=== PATIENT | female | born 1985 | race Caucasian/White ===

== ENCOUNTER 2019-07-25 14:07 | Observation (INO) | payer OTHER, SELFPAY ==
[2019-07-25] VITALS (7 sets, daily range): BP systolic 124–137; BP diastolic 72–89; PULSE 67–88; RESP 15–20; TEMP 36.8–37.4; O2SAT 96–99
--- NOTE | ~2019-07-25 | US_ITS ---
EXAMINATION: US pelvic complete DATE: 07/26/2019 14:41 INDICATION: Abdominal plane and abnormal bleeding post section 13 days ago TECHNIQUE: Multiple transabdominal and endovaginal sonographic images of the pelvis were obtained. COMPARISON: 07/25/2019 FINDINGS: The uterus measures 11.8 x 8.4 x 7.1 cm. The endometrial complex measures 2.9 cm in thickne ss. There is persistent anechoic and hypoechoic material in the endometrial canal with possible sligh t decrease in the hypoechoic component. Neither component demonstrates internal vascularity. There is a 7.0 x 2.4 cm fluid collection in the anterior abdominal wall adjacent to the area of the scar. There is no free fluid in the pelvis. IMPRESSION: 1. Thickened endometrial complex containing heterogeneous material, differential is as previously zaida cribed including hematoma and/or retained products of conception. 2. Persistent fluid collection in the anterior abdominal wall adjacent to the scar, consistent with h ematoma and/or abscess. Reviewed, dictated and finalized at location A. IMPRESSION: 1. Thickened endometrial complex containing heterogeneous material, differentia l is as previously described including hematoma and/or retained products of con ception. 2. Persistent fluid collection in the anterior abdominal wall adjacent to the s car, consistent with hematoma and/or abscess.
--- NOTE | ~2019-07-25 | US_ITS ---
EXAMINATION: US pelvic complete DATE: 07/25/2019 16:02 INDICATION: Vaginal bleeding post section TECHNIQUE: Multiple transabdominal sonographic images of the pelvis were obtained. COMPARISON: None. FINDINGS: The uterus measures 13.4 x 7.2 x 8.3 cm. The endometrial complex measures 3.5 cm in thickness, fille d with both anechoic fluid and hypoechoic material concerning for, additional hemorrhage and retained products of conception. No internal vascular flow on color Doppler within the hypoechoic material wi thin the endometrial complex. The ovaries are not visualized. There is no free fluid in the pelvis. 7 .4 x 2.1 x 7.3 cm anechoic fluid collection within the anterior abdominal wall at the site of the [place] section scar most likely residual postoperative hematoma with differential including abscess in the appropriate clinical setting. IMPRESSION: 1. Thickened endometrial complex measuring 3.5 cm in thickness and containing anechoic fluid and hypo echoic material which could represent either clot and/or retained products of conception. 2. 7.4 x 2.1 x 7.3 cm likely hematoma along the anterior abdominal wall section wound. Reviewed, dictated and finalized at location A. IMPRESSION: 1. Thickened endometrial complex measuring 3.5 cm in thickness and containing a nechoic fluid and hypoechoic material which could represent either clot and/or retained products of conception. 2. 7.4 x 2.1 x 7.3 cm likely hematoma along the anterior abdominal wall cesarea n section wound.
--- NOTE | ~2019-07-25 | US_ITS ---
EXAMINATION: US abscess cyst aspiration DATE: 07/27/2019 13:04 INDICATION: Loculated fluid collection along a transverse pelvic surgical wound. TECHNIQUE: The procedure including the risks and benefits was discussed with the patient. Risks discu ssed included bleeding, allergic reaction and infection. The patient understood the risks and agreed to proceed. The skin slightly cephalad to a transverse Pfannenstiel surgical wound at the anterior p robby was prepped and draped in usual sterile fashion. Anesthetic was administered with 1% lidocaine subcutaneously. An 18 gauge trocar needle was advanced under continuous ultrasound observation into the fluid collection of interest. 7 mL of dark maroon-colored 3 cm fluid was aspirated and sent to the lab for Gram stain and cultures. The needle was removed and the entry site was cleaned and dress ed. Post procedure ultrasound demonstrated no new hemorrhage. FINDINGS: Ultrasound images demonstrate 9.4 x 9.1 x 2.2 cm nearly anechoic complex fluid collection s lightly cephalad to the section wound. Subsequent images demonstrate the needle within the f luid collection. IMPRESSION: 1. Successful Ultrasound-guided aspiration of a likely postoperative hematoma along a sectio n wound at the anterior pelvis. Reviewed, dictated and finalized at location A. IMPRESSION: 1. Successful Ultrasound-guided aspiration of a likely postoperative hematoma a long a section wound at the anterior pelvis.
[2019-07-25 14:39] LABS: Basophils Absolute Auto 0.1 K/mm3 (0.0-0.1); Basophils Percent Auto 0.7 % (0.2-1.2); Eosinophils Absolute Auto 0.7 K/mm3 (0-0.3); Eosinophils Percent Auto 8.8 % (0-4.4); Hematocrit 34.2 % (37.0-47.0); Hemoglobin 10.3 g/dL (12.0-15.0); Immature Granulocyte Absolute 0.03 K/mm3 (0.00-0.031); Immature Granulocyte Percent A 0.4 % (0-0.5); Lymphocytes Absolute Auto 3.04 K/mm3 (0.9-3.2); Mean Corpuscular HGB Conc 30.1 g/dl (32-36); Mean Corpuscular Hemoglobin 23.1 pg (26-34); Mean Corpuscular Volume 76.9 fl (80-100); Mean Platelet Volume 9.2 fl (7.4-10.4); Monocytes Absolute Auto 0.7 K/mm3 (0.1-0.6); Monocytes Percent Auto 8.6 % (2.6-8.5); Neutrophils Absolute Auto 3.9 K/mm3 (1.3-6.7); Neutrophils Percent Auto 45.5 % (45.5-73.1); Platelet Count Result 1346 k/mm3 (150-375); Red Blood Count 4.45 M/mm3 (4.2-5.4); Red Cell Distribution Width 17.2 % (11.5-14.5); White Blood Count 8.5 K/mm3 (4.5-10.0)
[2019-07-25 14:57] LABS: Alanine Aminotransferase 17 U/L (4-35); Albumin Level 4.1 g/dL (3.5-5.1); Alkaline Phosphatase 151 U/L (38-126); Aspartate Amino Transferase 35 U/L (14-36); Bilirubin,Total 0.5 mg/dL (0.2-1.3); Blood Urea Nitrogen 14 mg/dL (7-17); Calcium 9.3 mg/dL (8.4-10.2); Carbon Dioxide 28 mmol/L (22-30); Chloride 100 mmol/L (98-107); Estimated CRCL calculation 93 ml/min; Estimated Glomerular Filt Rate > 60; Glucose 92 mg/dL (65-105); Potassium 3.8 mmol/L (3.4-5.0); Sodium 135 mmol/L (137-145)
--- NOTE | 2019-07-25 15:25 | ED.FEMALEGU ---
HPI - Female Genitourinary General Chief complaint: INFANT NANNY Stated complaint: post bleeding Time Seen by Provider: 07/25/19 15:11 History of Present Illness HPI Narrative: Patient presents with abnormally heavy bleeding from her vagina. She had a on May 12. Her bleeding has stopped after that. She has some cramping with this. She is breast-feeding the baby. Her OB [facility]. She was using 2 pads an hour at home She also complains of hives itching and cool hands. MD elicited complaint: vaginal bleeding and pelvic pain Onset (ago): hour(s) Location of symptoms: vaginal Vaginal bleeding: heavy and bright red Relieving factors: none Related Data Allergies Allergy/AdvReac Type Severity Reaction Status Date / Time ibuprofen Allergy Mild hives Verified 10/27/18 12:09 ketorolac Allergy Mild hives Verified 10/27/18 12:09 azithromycin Allergy Unknown Anaphylactic Verified 10/27/18 12:09 Shock Review of Systems Review of Systems: Narrative: CONSTITUTIONAL: Denies fever, chills, or sweats. EYES: Denies visual changes, redness, or discharge. ENT: Denies rhinorrhea, congestion, sore throat, or otalgia. CARDIOVASCULAR: Denies chest pain, palpitations, or edema. RESPIRATORY: Denies cough or dyspnea. GASTROINTESTINAL: Denies abdominal pain, nausea, vomiting, or diarrhea. GENITOURINARY: Denies dysuria or hematuria.She is here for heavy vaginal bleeding. SKIN: Denies rash or itching. MUSCULOSKELETAL: Denies back pain, joint pain, or myalgia. NEUROLOGIC: Denies headache, numbness, or weakness. PSYCHIATRIC: Denies anxiety or depression. PMFSH Surgical History Surgical History H/O splenectomy History of appendectomy History of cholecystectomy Social History Social History (Updated 07/25/19 @ 15:29 by Marylou Felix MD) Smoking status: Never smoker Alcohol intake: never Substance use: never Exam Narrative: Exam Narrative: GENERAL: Well-appearing, well-nourished, and in no acute distress. HEAD: Normocephalic, atraumatic. EYES: PERRLA and EOMI. ENT: Nares clear, no rhinorrhea or epistaxis. Mucous membranes moist. NECK: Supple. CHEST: Clear to auscultation. No respiratory distress. HEART: Regular rate and rhythm. No murmur heard. Normal peripheral pulses. ABDOMEN: Soft, nontender, nondistended, normal active bowel sounds. EXTREMITIES: Normal range of motion. No edema. SKIN: Warm, dry, no rash. NEURO: No focal deficits. Alert and oriented x3. PSYCH: Normal mood and affect. Const: General: no acute distress and alert Orientation/consciousness: patient oriented x3 : Speculum Exam - Vagina: vaginal bleeding (Discussed risk of bright red vaginal bleeding, no clots, unable to see the ) Course Reevaluation(s) Reevaluation #1: Will back into told the patient about her admission, and she is more concerned about her hands feeling numb. I told her it might be either carpal tunnel or hyperventilation, and she asked if she was going to . I assured her not anytime soon. I explained that we would get a redraw her blood and that she was going to be admitted under Dr. Hardy and that he was going to evaluate her and decide whether or not she needed to have a D&C. I explained the D&C process. I also told her that she could ask for a breast pump when she gets to the floor to keep her milk going. Date: 07/25/19 Time: 16:55 Consultations Consultation #1: Call Dr. Enriquez COMPARATIVE SOCIOLOGY PROFESSOR, and he will call back in an hour after the ultrasound to see whether he needs to come in and do the procedure. Date: 07/25/19 Time: 15:31 Consultation #2: Called Dr. Enriquez back, and he will admit and evaluate on the floor. Date: 07/25/19 Time: 16:44 Vital Signs Vital signs: Vital Signs Temperature 98.4 F 07/25/19 14:10 Pulse Rate 87 07/25/19 14:10 Respiratory Rate 20 07/25/19 14:10 Blood Pressure 137/72 07/25/19 14:10 Pulse Oximetry 98 07/25/19 14:10
[2019-07-25 16:58] LABS: Hematocrit 31.7 % (37.0-47.0); Hemoglobin 9.6 g/dL (12.0-15.0)
[2019-07-25] MEDS: ONDANSETRON INJ 4 MG/2 ML VIAL IV PUSH (17:16)
[2019-07-25] MEDS: DEXTROSE 5%/0.45% SOD CHL 1,000 ML 100 ML IV CONT (17:46)
--- NOTE | 2019-07-25 17:54 | ADMGEN ---
1730-This patient, Minda Perez, was admitted to OB 2nd Floor Room 289-00. Patient oriented to hospital policies and general routines including ID bracelet, bed and alarms, visiting hours, pain management, procedures, bathroom and other care routines, personal items, smoking policy, room service/diet, and visiting hours. Valuables list has been completed. Information on how to activate the Rapid Response Team has been discussed. Patient is encouraged to report perceived risks to care and to ask questions if they do not understand what they are told or what they should do.
[2019-07-25] MEDS: ONDANSETRON INJ 4 MG/2 ML VIAL 8 MG IV PUSH (22:50)
[2019-07-26 03:50] VITALS: BP 121/73; PULSE 68; RESP 15; TEMP 37; O2SAT 100
[2019-07-26] MEDS: DEXTROSE 5%/0.45% SOD CHL 1,000 ML 100 ML IV CONT ×2 (04:00→14:03)
[2019-07-26 08:20] VITALS: BP 148/87; PULSE 59; RESP 18; TEMP 37.4; O2SAT 99
--- NOTE | 2019-07-26 08:38 | PM.IMHP ---
H&P: HPI History of Present Illness Chief complaint: vag bleed after delivery Narrative: Minda Perez is a 34 year old female 4 para 4 who is 12 days from a delivery. She had an episode of heavy vaginal bleeding. The began yesterday and persisted into the evening yesterday. Has slowed significantly. She denies any nausea, vomiting, fever, chills. She denies any chest pain or shortness of breath. She has a history of splenectomy. She has spherocytosis. She has history of 4 deliveries.. Thrombocytopenia likely secondary to her splenectomy. Review of Systems Constitutional: Constitutional: Reports no additional constitutional complaints, Denies fatigue, Denies headache(s), Denies lethargy and Denies weakness Eyes: Eyes: Reports no additional eye complaints, Denies blurry vision and Denies photophobia ENT: Reports as per HPI, Denies headache(s) and Denies neck pain Cardiovascular: Cardiovascular: Denies chest pain, Denies diaphoresis, Denies leg edema, Denies palpitations and Denies dyspnea Respiratory: Respiratory: Denies hemoptysis, Denies dyspnea and Denies wheezing Gastrointestinal: Gastrointestinal: Denies abdominal pain, Denies melena, Denies bloating, Denies hematochezia, Denies nausea and Denies vomiting Genitourinary: Genitourinary: Reports no additional female genitourinary complaints Musculoskeletal: Musculoskeletal: Denies joint swelling, Denies neck pain, Denies numbness and Denies stiffness Neurologic: Denies Abnormal speech present, Denies confusion, Denies headache(s), Denies numbness and Denies weakness Psychiatric: Psychiatric: Denies anxiety, Denies confusion, Denies depression, Denies homicidal ideation and Denies suicidal ideation Endocrine: Endocrine: Denies fatigue and Denies palpitations Allergic/Immunologic: Allergic/Immunologic: Denies wheezing PMFSH Past Medical History Medical History (Updated 07/26/19 @ 08:42 by Manjit Enriquez MD) Spherocytosis Surgical History Surgical History H/O splenectomy History of appendectomy History of cholecystectomy Social History Social History (Updated 07/25/19 @ 15:29 by Marylou Felix MD) Smoking status: Never smoker Alcohol intake: never Substance use: never Meds Home Medications and Allergies Allergies Allergy/AdvReac Type Severity Reaction Status Date / Time ibuprofen Allergy Mild hives Verified 10/27/18 12:09 ketorolac Allergy Mild hives Verified 10/27/18 12:09 azithromycin Allergy Unknown Anaphylactic Verified 10/27/18 12:09 Shock Vital Signs Vital Signs - 24 hr 07/25/19 14:10 07/25/19 16:17 07/25/19 17:05 Temperature 98.4 F 98.2 F Pulse Rate 87 88 70 Respiratory Rate 20 20 20 Blood Pressure 137/72 124/74 128/89 Pulse Oximetry 98 99 99 07/25/19 17:23 07/25/19 17:35 07/25/19 19:30 Temperature 98.2 F 99.0 F 98.5 F Pulse Rate 70 67 73 Respiratory Rate 20 18 16 Blood Pressure 124/80 135/87 133/78 Pulse Oximetry 99 98 96 07/25/19 23:00 07/26/19 03:50 Temperature 99.4 F 98.6 F Pulse Rate 78 68 Respiratory Rate 15 15 Blood Pressure 132/82 121/73 Pulse Oximetry 97 100 Exam Const: General: healthy appearing, comfortable and no acute distress; No confusion Orientation/consciousness: No confusion Eyes: Direct Ophthalmoscopy: No photophobia Resp: Auscultation: clear to auscultation bilaterally, no rales, no rhonchi and no wheezes Cardio: Rate: regular rate Heart sounds: no click, no murmurs and no rubs GI: Inspection: non-distended GI Palp: No abdominal tenderness Auscultation: normal bowel sounds Neuro: General: No confusion Speech: No Abnormal speech present Extrem: General: normal to inspection, no pedal edema and no calf tenderness H&P: Results Labs Labs: Short CBC 07/25/19 07/25/19 Range/Units 14:29 16:53 WBC 8.5 (4.5-10.0) K/mm3 Hgb 10.3 L 9.6 L (12.0-15.0) g/dL Hct 34.
[2019-07-26] MEDS: ONDANSETRON INJ 4 MG/2 ML VIAL 8 MG IV PUSH ×2 (08:48→17:22)
[2019-07-26] MEDS: SERTRALINE HCL 50 MG TABLET 150 MG PO (10:15)
[2019-07-26] MEDS: CLONAZEPAM 0.5 MG TAB 1 MG PO ×2 (10:16→20:32)
[2019-07-26 10:42] LABS: Basophils Absolute Auto 0.1 K/mm3 (0.0-0.1); Basophils Percent Auto 0.9 % (0.2-1.2); Eosinophils Absolute Auto 0.7 K/mm3 (0-0.3); Eosinophils Percent Auto 8.6 % (0-4.4); Hematocrit 35.1 % (37.0-47.0); Hemoglobin 10.6 g/dL (12.0-15.0); Immature Granulocyte Absolute 0.06 K/mm3 (0.00-0.031); Immature Granulocyte Percent A 0.8 % (0-0.5); Lymphocytes Absolute Auto 3.05 K/mm3 (0.9-3.2); Lymphocytes Percent Auto 40.3 % (18.3-44.2); Mean Corpuscular HGB Conc 30.2 g/dl (32-36); Mean Corpuscular Hemoglobin 23.3 pg (26-34); Mean Corpuscular Volume 77.1 fl (80-100); Mean Platelet Volume 8.9 fl (7.4-10.4); Monocytes Absolute Auto 0.6 K/mm3 (0.1-0.6); Monocytes Percent Auto 7.9 % (2.6-8.5); Neutrophils Absolute Auto 3.1 K/mm3 (1.3-6.7); Neutrophils Percent Auto 41.5 % (45.5-73.1); Platelet Count Result 1354 k/mm3 (150-375); Red Blood Count 4.55 M/mm3 (4.2-5.4); White Blood Count 7.6 K/mm3 (4.5-10.0)
[2019-07-26 11:25] VITALS: BP 119/64; PULSE 88; RESP 18; TEMP 37.4; O2SAT 97
[2019-07-26 11:48] LABS: Anisocytosis 1+ (NORMAL); Platelet Estimate Increased (Adequate); Poikilocytosis 1+ (NORMAL)
[2019-07-26 17:00] VITALS: BP 132/72; PULSE 71; RESP 14; TEMP 36.6; O2SAT 100
--- NOTE | 2019-07-26 17:33 | PC.NURSE ---
Pt is very anxious. Has stated multiple times that she believes she has an infection. I have reassured her that her vitals and labs all look good and do not indicate infection. She states that her itching and nausea are getting worse, i administered zofran and benadryl and explained how her nerves could play a role into those. However, she is not complaining of pain at this time. Will continue to monitor patient.
[2019-07-26 20:15] VITALS: BP 123/80; PULSE 75; RESP 15; TEMP 37.3; O2SAT 96
[2019-07-27] MEDS: CLONAZEPAM 0.5 MG TAB 1 MG PO ×2 (07:38→17:51)
[2019-07-27] MEDS: SERTRALINE HCL 50 MG TABLET 150 MG PO (07:38)
[2019-07-27 08:00] VITALS: BP 129/79; PULSE 72; RESP 18; TEMP 36.9
--- NOTE | 2019-07-27 08:13 | PM.OBPNVD ---
OB - PN: Subj Subjective Date/time seen: 07/27/19 08:13 denies n/v/f/c, no vaginal bleeding, OB - PN: Obj Data Labs CBC & Chem 7: 07/26/19 10:25 07/25/19 14:29 Labs: Laboratory Results - last 24 hr 07/26/19 10:25 WBC 7.6 RBC 4.55 Hgb 10.6 L Hct 35.1 L MCV 77.1 L MCH 23.3 L MCHC 30.2 L RDW 17.0 H Plt Count 1354 H MPV 8.9 Immature Gran % (Auto) 0.8 H Neut % (Auto) 41.5 L Lymph % (Auto) 40.3 [place] % (Auto) 7.9 Eos % (Auto) 8.6 H Baso % (Auto) 0.9 Lymph # (Auto) 3.05 [place] # (Auto) 0.6 Eos # (Auto) 0.7 H Baso # (Auto) 0.1 Abs Immat Gran (auto) 0.06 H Absolute Neuts (auto) 3.1 Absolute Nucleated RBC 0.0 Nucleated RBC % 0.0 Platelet Estimate Increased Poikilocytosis 1+ Anisocytosis 1+ Imaging Radiologist's impression: Impressions Pelvis Ultrasound 07/26/19 15:33 IMPRESSION: 1. Thickened endometrial complex containing heterogeneous material, differential is as previously described including hematoma and/or retained products of conception. 2. Persistent fluid collection in the anterior abdominal wall adjacent to the scar, consistent with hematoma and/or abscess. OB - PN A/P Assessment and Plan (1) Vagina bleeding: Code(s): N93.9 - Abnormal uterine and vaginal bleeding, unspecified Status: Acute (2) Pelvic abscess: Status: Acute Assessment and Plan: To have radiology place drain in fluid collection, cont. obs today, endometrial fluid collection to observe, low likelyhood of retained products. Time Spent With Patient Time: Total time spent is greater than 50% in coordination of care (as documented) at patient's floor/unit and/or counseling patient: Review of Systems Constitutional: Constitutional: Reports no additional constitutional complaints, Denies fatigue, Denies headache(s), Denies lethargy and Denies weakness Eyes: Eyes: Reports no additional eye complaints, Denies blurry vision and Denies photophobia ENT: Reports as per HPI, Denies headache(s) and Denies neck pain Cardiovascular: Cardiovascular: Denies chest pain, Denies diaphoresis, Denies leg edema, Denies palpitations and Denies dyspnea Respiratory: Respiratory: Denies hemoptysis, Denies dyspnea and Denies wheezing Gastrointestinal: Gastrointestinal: Denies abdominal pain, Denies melena, Denies bloating, Denies hematochezia, Denies nausea and Denies vomiting Genitourinary: Genitourinary: Reports no additional female genitourinary complaints Musculoskeletal: Musculoskeletal: Denies joint swelling, Denies neck pain, Denies numbness and Denies stiffness Neurologic: Denies Abnormal speech present, Denies confusion, Denies headache(s), Denies numbness and Denies weakness Psychiatric: Psychiatric: Denies anxiety, Denies confusion, Denies depression, Denies homicidal ideation and Denies suicidal ideation Endocrine: Endocrine: Denies fatigue and Denies palpitations Allergic/Immunologic: Allergic/Immunologic: Denies wheezing Exam Const: General: comfortable, no acute distress and alert Resp: Effort & Inspection: normal respiratory effort Auscultation: no crackles, no rales and no rhonchi Cardio: Rate: regular rate Heart sounds: no click, no murmurs and no rubs GI: Inspection: non-distended GI Palp: No Tenderness to palpation present (GI) Auscultation: normal bowel sounds Other: Incision - CDI Extrem: General: normal to inspection, no pedal edema and no calf tenderness
--- NOTE | 2019-07-27 10:14 | PCCCNOTE ---
Received referral to see pt. for eval for post psychosis . Spoke with pt.'s nurse, Deanne. If concern for pyschosis, eval needs to be completed by physician or consult psychiatrist. Per Deanne, pt. is doing better today. Met with pt. this morning. Patient appeared appropriate in affect and interaction with protective services social worker. Pt. reports that she had a baby girl by c section on July 13, 2019. This was her first baby. She reports that all 4 children are at home with their father, her significant other. Pt. reports that she has had anxiety for years and has taken zoloft and klonopin. Her meds have been prescribed by her director microbiology and she has an appointment with a psychiatrist in [place] within the next 2 weeks. She is unsure of the date of the appointment but will contact them when she gets home. She does not have a therapist. Offered to assist with resources for therapist in local area, but pt. reports that she will get an appointment with a therapist at the psychiatrists office after her first visit. Pt. admits to DCFS involvement after her baby was born earlier this month. She states that she was prescribed oxycodone after she slipped and fell down 13 icy steps in March. She had a urine drug screen done in the hospital in [place] which was positive for opiates and DCFS was called. She reports that they made one home visit after discharge earlier this month to check look at her house, but no contact since then. She reports that all 4 children live with her. Questioned patient about suicidal and homicidal ideation and she denied both. Pt. instructed to let nurse know if questions or other needs come up.
--- NOTE | 2019-07-27 12:47 | PC.NURSE ---
Pt. to radiology per wheelchair for needle aspiration procedure. Consent signed for procedure.
--- NOTE | 2019-07-27 13:12 | PC.NURSE ---
Pt. returned from procedure. Doing well.
[2019-07-27] MEDS: ONDANSETRON INJ 4 MG/2 ML VIAL 8 MG IV PUSH ×2 (13:25→19:35)
[2019-07-27 16:00] VITALS: BP 106/63; PULSE 69; RESP 18; TEMP 37.2
[2019-07-27 19:45] VITALS: BP 116/77; PULSE 73; RESP 18; TEMP 36.8; O2SAT 96
[2019-07-27 23:45] VITALS: BP 104/64; PULSE 81; RESP 16; TEMP 36.9; O2SAT 100
[2019-07-28] MEDS: ONDANSETRON INJ 4 MG/2 ML VIAL 8 MG IV PUSH ×2 (01:37→07:23)
[2019-07-28 05:06] VITALS: BP 104/64; PULSE 77; RESP 16; TEMP 36.8; O2SAT 100
[2019-07-28] MEDS: SERTRALINE HCL 50 MG TABLET 150 MG PO (07:22)
[2019-07-28] MEDS: CLONAZEPAM 0.5 MG TAB 1 MG PO (07:23)
--- NOTE | 2019-07-28 07:35 | PM.OBPNVD ---
OB - PN: Subj Subjective Date/time seen: 07/28/19 07:35 patient had an episode of emesis last night, patient extremity anxious for several days. Patient comments: no complaints, pain well controlled and tolerating diet OB - PN: Obj Data Labs CBC & Chem 7: 07/26/19 10:25 07/25/19 14:29 Imaging Radiologist's impression: Impressions Cyst Aspiration Ultrasound 07/27/19 13:40 IMPRESSION: 1. Successful Ultrasound-guided aspiration of a likely postoperative hematoma along a section wound at the anterior pelvis. OB - PN A/P Assessment and Plan (1) Postoperative vaginal bleeding: Status: Acute (2) Pelvic hematoma: Status: Acute Assessment and Plan: Suspected pelvic abscess aspirated yesterday and found to be blood only. Patient has been observed now for almost 4 complete days and has no signs or symptoms of infection. She has severe anxiety. We are going to discharge today. She has a psychiatry appointment coming up. She is going to follow up in 1 week. Her vaginal bleeding is stable/resolving. Time Spent With Patient Time: Total time spent is greater than 50% in coordination of care (as documented) at patient's floor/unit and/or counseling patient: Exam Const: General: comfortable, no acute distress and alert Resp: Effort & Inspection: normal respiratory effort Auscultation: no crackles, no rales and no rhonchi Cardio: Rate: regular rate Heart sounds: no click, no murmurs and no rubs GI: Inspection: non-distended GI Palp: No Tenderness to palpation present (GI) Auscultation: normal bowel sounds Other: Incision - CDI Extrem: General: normal to inspection, no pedal edema and no calf tenderness Psych: Appearance: grossly normal and well kempt Affect: Anxious affect present Attitude: cooperative Judgement: Good judgement present (Psych)
--- NOTE | 2019-07-28 07:39 | P.DS_ITS ---
DS: Diagnosis Admitting Diagnosis Admitting Diagnosis: Essential (hemorrhagic) thrombocythemia Discharge Diagnosis (1) Pelvic hematoma: Status: Acute (2) Vagina bleeding: Code(s): N93.9 - Abnormal uterine and vaginal bleeding, unspecified Status: Acute (3) Anxiety: Code(s): F41.9 - Anxiety disorder, unspecified Status: Acute DS: Summary Status at Discharge Functional status at discharge: independent ambulation Time Spent with Patient Time attestation: Total time spent providing and/or coordinating discharge services: Time spent: Less than 30 minutes DS: Data Data Completed and Pending Labs on day of discharge: Preliminary micro results at discharge 07/27/19 12:49 Anaerobic Culture - Preliminary Incision Discharge Plan Discharge Attending physician on discharge: Manjit Enriquez Discharging Clinician: Manjit Enriquez Patient Disposition: Home Health Service Activity: pelvic rest Diet: regular Patient Instructions: Antibiotic Form, Dysfunctional Uterine Bleeding (ED) Stand Alone Forms: General Discharge Information Follow-up/Referrals: Manjit Enriquez MD [Physician] - Discharge Medications: New clonazepam 0.5 mg Tablet 1 mg PO Q12H PRN (Reason: Anxiety) Qty: 25 RF: 0 hydrocodone-acetaminophen 5-325 mg tablet 1 - 2 tablet PO Q4H PRN (Reason: pain) Qty: 25 RF: 0 Date of admission: 07/25/19 16:47 Primary Care Provider: PHYSICIAN,WEALTH MANAGEMENT CONSULTANT Admitting Provider: Manjit Enriquez Attending physician on admission: Manjit Enriquez Condition: Serious
[2019-07-28 08:00] VITALS: BP 113/67; PULSE 75; RESP 18; TEMP 37.1
[2019-07-28 09:24] LABS: Basophils Percent Auto 0.3 % (0.2-1.2); Eosinophils Absolute Auto 0.3 K/mm3 (0-0.3); Eosinophils Percent Auto 2.1 % (0-4.4); Hematocrit 34.2 % (37.0-47.0); Hemoglobin 10.3 g/dL (12.0-15.0); Immature Granulocyte Absolute 0.04 K/mm3 (0.00-0.031); Immature Granulocyte Percent A 0.3 % (0-0.5); Lymphocytes Absolute Auto 1.98 K/mm3 (0.9-3.2); Lymphocytes Percent Auto 15.6 % (18.3-44.2); Mean Corpuscular HGB Conc 30.1 g/dl (32-36); Mean Corpuscular Hemoglobin 23.3 pg (26-34); Mean Corpuscular Volume 77.4 fl (80-100); Mean Platelet Volume 9.2 fl (7.4-10.4); Monocytes Absolute Auto 0.5 K/mm3 (0.1-0.6); Monocytes Percent Auto 4.2 % (2.6-8.5); Neutrophils Absolute Auto 9.8 K/mm3 (1.3-6.7); Neutrophils Percent Auto 77.5 % (45.5-73.1); Platelet Count Result 1198 k/mm3 (150-375); Red Blood Count 4.42 M/mm3 (4.2-5.4); Red Cell Distribution Width 17.1 % (11.5-14.5); White Blood Count 12.7 K/mm3 (4.5-10.0)
== END 2019-07-28 11:19 | disposition home or self-care (01) ==
LOC: ANHED 16:53 → ANHOB2 17:09
PROVIDERS: Emergency Medicine; Admitting Provider Obstetrics & Gynecology; Emergency Provider Emergency Medicine; Visit Provider Obstetrics & Gynecology
DX: O90.2 Hematoma of obstetric wound (principal); O72.1 Other immediate postpartum hemorrhage; O99.13 Other diseases of the blood and blood-forming organs and certain disorders involving the immune mechanism complicating the puerperium; D58.0 Hereditary spherocytosis; O99.345 Other mental disorders complicating the puerperium; F41.9 Anxiety disorder, unspecified; O99.89 Other specified diseases and conditions complicating pregnancy, childbirth and the puerperium; D47.3 Essential (hemorrhagic) thrombocythemia; O90.81 Anemia of the puerperium; D64.9 Anemia, unspecified; Z90.81 Acquired absence of spleen
CPT/HCPCS: 36415; 76856; 76942; 80053; 85014; 85018; 85025; 86850; 86900; 86901; 87070; 87075; 87205; 96361; 96374; 96375; 96376; 99285; A9270; G0378; J1200; J2405; J3010

== ENCOUNTER 2020-02-01 14:24 | Emergency (ER) | payer OTHER, SELFPAY ==
[2020-02-01 14:35] VITALS: BP 134/77; PULSE 69; RESP 20; TEMP 36.9; O2SAT 100
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
--- NOTE | 2020-02-01 16:13 | PC.NURSE ---
Pt brought to room with manager rn case. Pt requesting multiple refills on prescription medications including controlled substances. EDP at bedside with charge machine operator. EDP does not feel comfortable prescribing pt home medications and referring pt to her primary care physician.
--- NOTE | 2020-02-01 16:17 | PC.NURSE ---
requested to come to room to speak with pt. Pt requesting her adderal, klonipine, & zoloft medications to be refilled. Dr Carlisle told pt he will not refill her controlled substance prescriptions, however he will give her a script for zoloft. pt is very upset and states you're lying because I've gotten my meds refilled here before Explained to her that she will get her zoloft medication prescription but none of her controlled substance prescriptions. Pt remains upset and continues to tell me that I am lying about filling her adderral and klonipine medications. Told pt again that she must speak to her prescribing doctor about those medications. She still remains upset.
--- NOTE | 2020-02-01 16:45 | PC.NURSE ---
Pt ambulated with employment evaluator/case manager out of room. EDP in hallway, pt states she is leaving w/o prescription or d/c paperwork. Pt ambulated w/o difficulty to parking lot.
[2020-02-01 17:02] VITALS: BP 128/80; PULSE 80; RESP 118; TEMP 36.6; O2SAT 99
== END 2020-02-01 17:03 | disposition home or self-care (01) ==
PROVIDERS: Emergency Provider Emergency Medicine
DX: F41.9 Anxiety disorder, unspecified (principal)
CPT/HCPCS: 99281

== ENCOUNTER 2020-05-21 15:52 | Emergency (ER) | payer OTHER, SELFPAY ==
[2020-05-21 16:02] VITALS: BP 121/69; PULSE 84; RESP 16; TEMP 37.3; O2SAT 98
--- NOTE | 2020-05-21 16:14 | ED.DENTAL ---
HPI - Dental/Oral General Chief complaint: Dental/Oral Stated complaint: TOOTH PAIN Time Seen by Provider: 05/21/20 16:00 Source: patient History of Present Illness HPI Narrative: 35 yo female presents to the [facility] care with right upper dental pain for a few days. Patient has a broken tooth. Was supposed to have it removed but never followed up. Patient states that she is , has not seen OB for this . Denies any vaginal discharge or abdominal pain. Last menstrual period December 29 approximately. States she does have an appointment with [facility] at the end of the month. Complaint: tooth pain Related Data Home Medications Medication Instructions Recorded Confirmed [id number] 28 pkg PO DAILY 05/21/20 05/21/20 [Daily ] sertraline [Zoloft] 50 mg PO DAILY 05/21/20 05/21/20 Allergies Allergy/AdvReac Type Severity Reaction Status Date / Time ibuprofen Allergy Mild hives Verified 05/21/20 16:15 Review of Systems Review of Systems: Narrative: CONSTITUTIONAL: Denies fever, chills, or sweats. EYES: Denies visual changes, redness, or discharge. ENT: Denies rhinorrhea, congestion, sore throat, or otalgia. Left upper dental pain with gum swelling CARDIOVASCULAR: Denies chest pain, palpitations, or edema. RESPIRATORY: Denies cough or dyspnea. GASTROINTESTINAL: Denies abdominal pain, nausea, vomiting, or diarrhea. GENITOURINARY: Denies dysuria or hematuria. SKIN: Denies rash or itching. MUSCULOSKELETAL: Denies back pain, joint pain, or myalgia. NEUROLOGIC: Denies headache, numbness, or weakness. PSYCHIATRIC: Denies anxiety or depression. All other systems reviewed are negative, except as documented in HPI. [facility] Past Medical History Medical History Spherocytosis Surgical History Surgical History H/O splenectomy History of appendectomy History of cholecystectomy Social History Social History Smoking status: Never smoker Alcohol intake: never Substance use: never Gender identity (if verbalized by the patient): Female Comments at this time. 4 at the time of my signature, I reviewed and agree with the nursing past medical, surgical, social, and family history. There is no relevant family history pertinent to the patient complaint. Exam Narrative: Exam Narrative: GENERAL: This is a well-nourished, well-developed patient, in no apparent distress. HEAD: normocephalic, atraumatic. EYES: PERRL. Sclera clear/white. Vision is grossly intact. EARS: External ears normal, auditory canals clear and without drainage, TMs normal without perforation. Hearing grossly intact. NOSE: External nose normal with no obvious nasal discharge, nares without redness, no rhinorrhea. THROAT: Mucous membranes moist, posterior pharynx clear. NECK: Neck supple, non-tender without lymphadenopathy, masses or thyromegaly. CARDIOVASCULAR: Regular rate and rhythm without murmurs, gallops, or rubs. RESPIRATORY: Clear to auscultation. Breath sounds equal bilaterally. No wheezes, rales, or rhonchi. GASTROINTESTINAL: Abdomen soft, non-tender, nondistended. Bowel sounds are active. No hepato-splenomegaly, or palpable masses. No guarding. SKIN: warm, intact with no suspicious lesions or rash, good texture and turgor. NEURO: awake, alert, and oriented to person, place and time. There were no obvious focal neurologic abnormalities. EXTREMITIES: No clubbing, cyanosis, or edema. No joint tenderness, effusion, or edema noted. No calf tenderness. Negative Homans sign bilaterally. BACK: Nontender without deformity or crepitance. No flank tenderness. heart tones at 142. HENMT: Teeth image: 1. Broken tooth with swelling of the gums around 13 14 15. Course Vital Signs Vital signs: Vital Signs Temperature 99.2 F
== END 2020-05-21 16:20 | disposition home or self-care (01) ==
PROVIDERS: Emergency Provider Nurse Practitioner
DX: O99.619 Diseases of the digestive system complicating pregnancy, unspecified trimester (principal); K02.9 Dental caries, unspecified; Z3A.00 Weeks of gestation of pregnancy not specified
CPT/HCPCS: 99213; G0463

== ENCOUNTER 2020-09-20 19:14 | Observation (INO) | payer OTHER, SELFPAY ==
[2020-09-20] VITALS (14 sets, daily range): BP systolic 92–113; BP diastolic 52–65; PULSE 101–124; TEMP 37.1; BMI 25.8
[2020-09-20] MEDS: LACTATED RINGERS 1,000 ML 125 ML IV CONT ×2 (19:50→21:53)
[2020-09-20] MEDS: ONDANSETRON INJ 4 MG/2 ML VIAL IV PUSH (19:50)
--- NOTE | 2020-09-20 20:02 | OBADM ---
This patient, Minda Perez, admitted to the OB room [facility] for observation. Patient/family oriented to hospital policies and general routines including ID bracelet, bed and alarms, visiting hours, pain management, procedures, bathroom and other care routines, personal items, smoking policy, room service/diet, and visiting hours. Patient/Family are encouraged to report perceived risks to care and to ask questions if they do not understand what they are told or what they should do.
[2020-09-20 20:03] LABS: Hematocrit 34.2 % (37.0-47.0); Hemoglobin 11.8 g/dL (12.0-15.0); Mean Corpuscular HGB Conc 34.5 g/dl (32-36); Mean Corpuscular Hemoglobin 30.6 pg (26-34); Mean Corpuscular Volume 88.8 fl (80-100); Mean Platelet Volume 10.8 fl (7.4-10.4); Platelet Count Result 438 k/mm3 (150-375); Red Blood Count 3.85 M/mm3 (4.2-5.4); White Blood Count 17.9 K/mm3 (4.5-10.0)
[2020-09-20 20:08] LABS: Add Urine Microscopic? YES; Appearance Urine Cloudy (Clear); Bacteria Urine Trace /hpf; Bilirubin Urine Negative (Negative); Blood Urine Negative (Negative); Budding Yeast Urine Present /hpf; Color Urine Amber (Yellow); Glucose Urine UA Negative (Negative); Ketones Urine Negative (Negative); Leukocyte Esterase Ur 1+ LEU/UL (Negative); Mucus Urine Few /lpf; Nitrate Urine Negative (Negative); Protein Urine 2+ mg/dL (Negative); Specific Grav Ur 1.028 (1.001-1.035); Squamous Epithelial Cell Urine Many /hpf (Few); WBC Urine 0-3 /hpf
[2020-09-20 20:14] LABS: Alanine Aminotransferase 16 U/L (4-35); Albumin Level 3.6 g/dL (3.5-5.1); Alkaline Phosphatase 167 U/L (38-126); Anion Gap 8 mmol/L (8-16); Aspartate Amino Transferase 36 U/L (14-36); Bilirubin,Total 1.6 mg/dL (0.2-1.3); Blood Urea Nitrogen 7 mg/dL (7-17); Calcium 8.7 mg/dL (8.4-10.2); Carbon Dioxide 22 mmol/L (22-30); Chloride 105 mmol/L (98-107); Estimated CRCL calculation 146 ml/min; Estimated Glomerular Filt Rate > 60; Glucose 85 mg/dL (65-105); Potassium 3.3 mmol/L (3.4-5.0); Sodium 135 mmol/L (137-145); Uric Acid 2.9 mg/dL (2.5-7.5)
[2020-09-20 20:33] LABS: Band Neutrophils Percent 11 % (0-6); Eosinophils Absolute Manual 0.17 K/mm3 (0.02-0.5); Eosinophils Percent Manual 1 % (0-4); Lymphocytes Absolute Manual 0.71 K/mm3 (1.1-4.5); Monocytes Absolute Manual 0.53 K/mm3 (0.1-0.90); Monocytes Percent Manual 3 % (3-9); Neutrophils Absolute Manual 16.46 K/mm3 (1.7-7.2); Neutrophils Percent Manual 81 % (46-73); Total Cells Counted 100
[2020-09-20 20:34] LABS: Anisocytosis 2+ (NORMAL); Platelet Estimate Increased (Adequate)
[2020-09-20] MEDS: LACTATED RINGERS 1,000 ML 999 ML IV CONT (20:35)
[2020-09-20] MEDS: NIFEdipine 10 MG CAPSULE PO (21:52)
--- NOTE | 2020-09-22 07:16 | PM.OBTRLD ---
OB - Triage/Final Diagnosis Visit Information Comments/Additional reasons for admission: I have assessed the risk for this patient, Minda Perez, and determined that she would benefit from observation care. Evaluation Laboratory results: Laboratory Tests 09/20/20 09/20/20 09/20/20 19:47 19:47 19:47 WBC 17.9 H RBC 3.85 L Hgb 11.8 L Hct 34.2 L MCV 88.8 MCH 30.6 MCHC 34.5 RDW 15.0 H Plt Count 438 H D MPV 10.8 H Immature Gran % (Auto) Not Reportable Neut % (Auto) Not Reportable Lymph % (Auto) Not Reportable [place] % (Auto) Not Reportable Eos % (Auto) Not Reportable Baso % (Auto) Not Reportable Lymph # (Auto) Not Reportable [place] # (Auto) Not Reportable Eos # (Auto) Not Reportable Baso # (Auto) Not Reportable Abs Immat Gran (auto) Not Reportable Absolute Neuts (auto) Not Reportable Absolute Nucleated RBC Not Reportable Total Counted 100 Neutrophils % (Manual) 81 H Band Neutrophils % 11 H Lymphocytes % (Manual) 4.0 L Monocytes % (Manual) 3 Eosinophils % (Manual) 1 Nucleated RBC % Not Reportable Abs Neuts (Manual) 16.46 H Abs Lymphs (Manual) 0.71 L Abs Monocytes (Manual) 0.53 Absolute Eos (Manual) 0.17 Platelet Estimate Increased Anisocytosis 2+ Sodium 135 L Potassium 3.3 L Chloride 105 Carbon Dioxide 22 Anion Gap 8 BUN 7 D Creatinine 0.40 L Estim Creat Clear Calc 146 Estimated GFR > 60 Glucose 85 Uric Acid 2.9 Calcium 8.7 Total Bilirubin 1.6 H AST 36 ALT 16 Alkaline Phosphatase 167 H Total Protein 7.0 Albumin 3.6 Urine Color Mona Urine Appearance Cloudy H Urine pH 6.0 Ur Specific [place] 1.028 Urine Protein 2+ H Urine Glucose (UA) Negative Urine Ketones Negative Ur Blood (Man) Negative Urine Nitrate Negative Urine Bilirubin Negative Urine Urobilinogen 4.0 H Leukocyte Esterase Rfl 1+ H Urine RBC 3-5 H Urine WBC 0-3 Ur Squamous Epith Cells Many H Urine Bacteria Trace Urine Mucus Few H Urine Yeast (Budding) Present H Final Diagnosis (1) Nausea and vomiting during : Code(s): O21.9 - Vomiting of , unspecified Status: Acute (2) contractions: Code(s): O47.9 - False labor, unspecified Status: Acute
== END 2020-09-20 23:07 | disposition home or self-care (01) ==
PROVIDERS: Admitting Provider Obstetrics & Gynecology; Visit Provider Obstetrics & Gynecology
DX: O47.03 False labor before 37 completed weeks of gestation, third trimester (principal); O21.0 Mild hyperemesis gravidarum; Z3A.35 35 weeks gestation of pregnancy
CPT/HCPCS: 36415; 80053; 81001; 84550; 85025; 96361; 96374; 96375; A9270; G0378; G0379; J0131; J2405; J7120

== ENCOUNTER 2021-02-28 14:29 | Emergency (ER) | payer OTHER, SELFPAY ==
--- NOTE | 2021-02-28 14:52 | ED.DENTAL ---
HPI - Dental/Oral General Chief complaint: Dental/Oral Stated complaint: tooth pain Time Seen by Provider: 02/28/21 15:05 Source: patient and RN notes reviewed Mode of arrival: ambulatory Limitations: no limitations History of Present Illness HPI Narrative: 35-year-old female presents with concern for right upper and left lower dental pain. She reports she has cracked teeth in both of those areas, that have been cracked for a long time however they do started hurting over the last 3 days. Reports she has a dentist appointment next week. She denies trouble swallowing, fever, foul taste. Reports she has been using Tylenol for pain relief MD Complaint: tooth pain Related Data Home Medications Medication Instructions Recorded Confirmed gabapentin 300 mg PO TID 02/28/21 02/28/21 sertraline 100 mg PO DAILY 02/28/21 02/28/21 Allergies Allergy/AdvReac Type Severity Reaction Status Date / Time azithromycin Allergy Other Verified 02/28/21 14:54 Review of Systems Review of Systems: CONSTITUTIONAL: Denies malaise, chills, sweats, or fever. EYES: Denies visual changes ENT: Reports right upper and left lower dental pain, cracked teeth. Denies trouble swallowing, foul taste CARDIOVASCULAR: Denies chest pain, palpitations, or edema. RESPIRATORY: Denies cough or dyspnea. GASTROINTESTINAL: Denies abdominal pain, nausea, vomiting SKIN: Denies rash or itching. MUSCULOSKELETAL: Denies myalgia. NEUROLOGIC: Denies headache. All systems reviewed & are unremarkable except as noted in HPI and below PMFSH Comments At time of signature, agree with nursing past medical, surgical, social and family history. There is no relevant family history pertinent to the presenting complaint Exam Narrative: GENERAL: Well-appearing, well-nourished, and in no acute distress. HEAD: Normocephalic, atraumatic. EYES: PERRLA, sclera clear ENT: Nares clear. Mucous membranes moist. Oropharynx without edema, erythema or lesions. Teeth #2 and 19 broken without periapical abscess noted, no visible facial swelling noted, left lower jaw tenderness palpation NECK: Supple. No lymphadenopathy. CHEST: No respiratory distress. Speaks in full sentences. HEART: Regular rate and rhythm. SKIN: Warm, dry, no visible rash. NEURO: Alert and oriented x3. PSYCH: Normal mood and affect Course Course Emergency Course: Patient is aware of diagnosis, understands and agrees to treatment plan. Anticipatory guidance given. Patient agrees to follow-up as directed and is aware of reasons to seek care at the emergency department. Portions of this record may have been created with voice recognition software Vital Signs Vital signs: Reviewed. MDM - Dental/Oral MDM Narrative Medical decision making narrative: Patients pain and complaint coupled with physical findings are consistant with dentalgia. There are no focal signs of space occupying lesions that are compromising to the airway; no dysphagia, odynophagia, dysphonia, or dyspnea. No uvular deviation or soft palate edema. Patient is non-toxic appearing. The floor of the mouth is soft with no signs of Edwar's Angina; no induration below mandible, no neck pain. Patient is without trismus or drooling and able to swallow secretions. Patient is felt appropriate for discharge home with dental follow up. Critical Care Time Critical Care Time Critical Care Time: No Discharge Plan Discharge Clinical Impression: Toothache Patient Disposition: Home, Self-Care Condition: Stable Instructions: Antibiotic Form, Toothache (ED) Additional Instructions: Take antibiotic as directed Avoid temperature extremes May apply heat or ice to the face Gentle brushing and flossing Alternate Tylenol and ibuprofen as needed for pain Follow-up with the dentist as soon as possible--see the list provided Prescriptions: New amoxicillin-pot clavulanate [Augmentin] 875-125 mg tablet 1 tablet PO Q12H 10 Days Qty: 20 RF: 0 No Acti
[2021-02-28 14:54] VITALS: BP 108/63; PULSE 79; RESP 18; TEMP 36.6; O2SAT 97
[2021-02-28 15:25] VITALS: BP 108/63; PULSE 79; RESP 18; TEMP 36.6; O2SAT 97
== END 2021-02-28 15:25 | disposition home or self-care (01) ==
PROVIDERS: Emergency Provider Nurse Practitioner
DX: K08.89 Other specified disorders of teeth and supporting structures (principal); F41.9 Anxiety disorder, unspecified; F32.A Depression, unspecified
CPT/HCPCS: 99213; G0463

== ENCOUNTER 2021-05-17 18:24 | Emergency (ER) | payer OTHER, SELFPAY ==
[2021-05-17 18:32] VITALS: BP 126/62; PULSE 72; RESP 18; TEMP 36.6; O2SAT 98
--- NOTE | 2021-05-17 18:37 | ED.DENTAL ---
HPI - Dental/Oral General Chief complaint: Dental/Oral Stated complaint: Tooth ache Time Seen by Provider: 05/17/21 18:37 Source: patient, RN notes reviewed and old records reviewed Mode of arrival: ambulatory Limitations: no limitations History of Present Illness HPI Narrative: 36-year-old female presents to the [facility] with complaints of dental pain for a few days. Hx of poor dentition. No treatment prior to arrival MD Complaint: tooth pain Related Data Home Medications Medication Instructions Recorded Confirmed sertraline [Zoloft] 100 mg PO DAILY 05/21/20 05/17/21 Allergies Allergy/AdvReac Type Severity Reaction Status Date / Time ibuprofen Allergy Mild hives Verified 05/21/20 16:15 Review of Systems Review of Systems: All systems reviewed & are unremarkable except as noted in HPI and below Constitutional: Constitutional: Reports no additional constitutional complaints, Denies chills and Denies fever(s) Eyes: Eyes: Reports no additional eye complaints ENT: Reports as per HPI Comments: Dental pain left lower posterior Cardiovascular: Cardiovascular: Reports no additional cardiovascular complaints, Denies chest pain and Denies dyspnea Respiratory: Respiratory: Reports no additional respiratory complaints, Denies cough and Denies dyspnea Musculoskeletal: Musculoskeletal: Reports no additional musculoskeletal complaints Integumentary/Breasts: Skin/Breast: Reports system reviewed and no additional complaints, except as docu Neurologic: Reports system reviewed and no additional complaints, except as documented Psychiatric: Psychiatric: Reports no additional psychiatric complaints Allergic/Immunologic: Allergic/Immunologic: Reports no additional allergic/immunologic complaints PMFSH Past Medical History Medical History Spherocytosis Surgical History Surgical History H/O splenectomy History of appendectomy History of cholecystectomy Social History Social History Smoking status: Never smoker Alcohol intake: never Substance use: never Gender identity (if verbalized by the patient): Female Comments At the time of my signature, I reviewed and agree with the nursing past medical, surgical, social, and family history. There is no relevant family history pertinent to the patient complaint. Exam Const: General: healthy appearing, no acute distress and alert Nutritional Appearance: well nourished Orientation/consciousness: patient oriented x3 Limitations: no limitations HENMT: Head: normal to inspection Ears: external ears normal, TM's normal bilaterally and EAC's normal General nose exam: Normal external nose present and Normal nasal mucous membranes and turbinates present Face and sinus: normal facial exam Mouth: Yes Normal oral and palatal mucosa present Teeth and gingiva: poor dentition Teeth image: 1. Decayed teeth with surrounding tissue erythema and swelling. No facial swelling noted. Throat: posterior oropharynx normal, tonsils normal and uvula midline Eyes: Conjunctivae: conjunctivae normal Pupils: Equal, round and reactive pupils present Neck: Neck: normal visual inspection, no lymphadenopathy and no meningeal signs Chest: Chest palpation & inspection: normal inspection of the chest Resp: Effort & Inspection: normal respiratory effort Auscultation: clear to auscultation bilaterally Cardio: Rate: regular rate Rhythm: regular rhythm : General: Yes no CVA tenderness Back/Spine/Pelvis: Back: no CVA tenderness Skin: General skin exam: normal color Rashes: no rashes Wounds: no wounds Neuro: General: patient oriented x3, moves all extremities, no meningeal signs and no focal motor deficits Cranial nerves: Yes Equal, round and reactive pupils present Speech: normal speech Gait exam (Neuro): Normal gait present Extrem:
== END 2021-05-17 18:46 | disposition home or self-care (01) ==
PROVIDERS: Emergency Provider Nurse Practitioner
DX: K02.9 Dental caries, unspecified (principal); K04.7 Periapical abscess without sinus
CPT/HCPCS: 99213; G0463